=== PATIENT | female | born 1980 | race Caucasian/White ===

== ENCOUNTER 2019-03-23 05:25 | Inpatient (IN) | payer MEDICAID ==
[2019-03-23] VITALS (53 sets, daily range): BP systolic 94–161; BP diastolic 25–101
[~2019-03-23] VITALS: Ht 157.5 cm; Wt 79.8 kg
[~2019-03-23 05:25] MED LIST: ALPR2TAB2 PO; FERR-63 PO; HYDR-3927 PO; Ibuprofen PO; OXCA300T31 PO; RISP0.5T19 PO; SODIUM CHLORIDE 0.9% 1,000 ML IV SCH; TOP100 PO; VENL-180 PO; VENL75CA56 PO
[2019-03-23] MEDS ORDERED: BACITRACIN 15GM TUBE TOP ONE (06:15)
[2019-03-23] MEDS ORDERED: THROMBIN (BOVINE) 5000 UNITS/VIAL TOP ONE (06:15)
[2019-03-23] MEDS ORDERED: NORMAL SALINE 0.9% 10 ML SYR ONE (06:15)
[2019-03-23] MEDS ORDERED: LIDOCAINE HCL/EPINEPHRINE 1%-EPI 1:100,000 20 ML VIAL ONE (06:16)
[2019-03-23] MEDS ORDERED: BACITRACIN 50,000 UNITS/VIAL ONE (06:16)
[2019-03-23] MEDS ORDERED: PROPOFOL 200MG/20ML VIAL IV ONE ×2 (06:53→07:37)
[2019-03-23] MEDS ORDERED: GLYCOPYRROLATE 0.2 MG/ML 2ML VIAL ONE (06:53)
[2019-03-23] MEDS ORDERED: ROCURONIUM BROMIDE 10MG/ML VIAL 5ML IV ONE ×2 (06:53→07:12)
[2019-03-23] MEDS ORDERED: CEFAZOLIN SODIUM 1000MG/VIAL ONE (06:53)
[2019-03-23] MEDS ORDERED: NEOSTIGMINE METHYLSULFATE 1MG/ML 10 ML VIAL ONE (06:53)
[2019-03-23] MEDS ORDERED: SODIUM CHLORIDE 0.9% 10ML VIAL ONE (06:53)
[2019-03-23] MEDS ORDERED: LIDOCAINE HCL/PF 1% 10 MG/ML 5ML VIAL ONE (06:53)
[2019-03-23] MEDS ORDERED: FENTANYL CITRATE/PF 50MCG/ML 2ML VIAL ONE ×2 (06:53→07:13)
[2019-03-23] MEDS ORDERED: MIDAZOLAM HCL 2 MG/2 ML VIAL ONE (06:53)
[2019-03-23] MEDS ORDERED: SUCCINYLCHOLINE CHLORIDE 200MG/10ML IV ONE (06:53)
[2019-03-23] MEDS ORDERED: METOCLOPRAMIDE HCL 10MG/2ML VIAL ONE (06:54)
[2019-03-23] MEDS ORDERED: EPHEDRINE SULFATE 50MG/ML VIAL ONE (06:54)
[2019-03-23] MEDS ORDERED: ONDANSETRON HCL 4MG/2ML INJ ONE (06:54)
[2019-03-23] MEDS ORDERED: PHENYLEPHRINE HCL 10 MG/ML 1ML (IV VIAL) IV ONE (06:54)
[2019-03-23] MEDS ORDERED: DEXAMETHASONE 4MG/ML 1ML VIAL ONE (06:54)
[2019-03-23] MEDS ORDERED: MANNITOL 20% 500 ML IV ONE (06:55)
[2019-03-23] MEDS ORDERED: FUROSEMIDE 40MG/4ML VIAL ONE (06:56)
[2019-03-23] MEDS ORDERED: LEVETIRACETAM 500MG PREMIX 100 ML IV ONE ×2 (06:56→06:58)
[2019-03-23] MEDS ORDERED: DOCU-15 PO (07:00)
[2019-03-23] MEDS ORDERED: METH500T6 PO (07:00)
[2019-03-23] MEDS ORDERED: HYDR200T80 PO (07:00)
[2019-03-23] MEDS ORDERED: ONDANSETRON HCL 4MG/2ML INJ IV PRN (07:15)
[2019-03-23] MEDS ORDERED: PHENYTOIN SODIUM 250MG/5ML VIAL IV ONE (08:20)
[2019-03-23] MEDS ORDERED: LABETALOL HCL 5MG/ML VIAL 20ML IV ONE (09:02)
[2019-03-23] MEDS ORDERED: DIPHENHYDRAMINE 50MG/ML VIAL IV ONE (10:15)
[2019-03-23] MEDS ORDERED: ONDANSETRON HCL 4MG/2ML INJ IV ONE (10:15)
[2019-03-23] MEDS ORDERED: FENTANYL CITRATE/PF 50MCG/ML 2ML VIAL IV PRN (10:15)
[2019-03-23] MEDS: MORPHINE SULFATE 2 MG/ML CPJ (NOT FOR IM USE) IV PRN ×6 (10:19→23:02)
[2019-03-23] MEDS: DEXT 5%/LACTATED RINGERS 1,000 ML IV SCH ×2 (10:19→23:55)
[2019-03-23] MEDS: NICARDIPINE 100 MG in SODIUM CHLORIDE 0.9% 60 ML IV PRN ×2 (10:20→18:10)
[2019-03-23] MEDS: DEXAMETHASONE 4MG/ML 1ML VIAL IV SCH ×3 (11:58→23:17)
[2019-03-23] MEDS: LEVETIRACETAM 500 MG in SODIUM CHLORIDE 0.9% 100 ML IV SCH ×2 (11:58→21:10)
[2019-03-23] MEDS ORDERED: CEFAZOLIN SODIUM 1000MG/VIAL IV SCH (14:00)
[2019-03-23] MEDS ORDERED: ALPRAZOLAM 0.5 MG TABLET PO PRN (14:30)
[2019-03-23] MEDS: PHENYTOIN SODIUM 100MG/2ML VIAL IV SCH ×2 (14:36→23:17)
[2019-03-23] MEDS: CEFAZOLIN 1000MG PREMIX 50 ML IV SCH ×2 (14:36→23:17)
[2019-03-23] MEDS ORDERED: PROPOFOL 10MG/ML 100ML 100 ML IV PRN (14:45)
[2019-03-23] MEDS ORDERED: TRANEXAMIC ACID 1,000 MG/10 ML IV ONE (16:00)
[2019-03-23] MEDS ORDERED: TRANEXAMIC ACID 1,000 MG in SODIUM CHLORIDE 0.9% 100 ML IV ONE ×4 (16:00)
[2019-03-23] MEDS: DOCUSATE SODIUM 100MG CAPSULE PO SCH (16:18)
[2019-03-23] MEDS: HYDROXYCHLOROQUINE SULFATE 200MG TABLET PO SCH (16:18)
[2019-03-23] MEDS: FERROUS SULFATE 325MG TABLET PO SCH (16:18)
[2019-03-23] MEDS: TOPIRAMATE 100MG TABLET PO SCH (16:19)
[2019-03-23] MEDS: RISPERIDONE 0.5MG TABLET PO SCH (16:19)
[2019-03-23] MEDS: OXCARBAZEPINE 300MG TABLET PO SCH (16:19)
[2019-03-23 16:22] LABS: BG BASE EXCESS -9.9 mmol/L (-2.0-2.0); BG CARBOXYHEMOGLOBIN 0.4 % (0.5-1.5); BG FRACTION INSPIRED OXYGEN 40; BG METHEMOGLOBIN 0.5 % (0.0-1.5); BG OXYHEMOGLOBIN 97.1 % (94.0-97.0); BG PCO2 35.4 mmHg (35.0-45.0); BG PH 7.272 (7.350-7.450); BG PO2 105.9 mmHg (75.0-100.0); BG SAMPLE SITE A-LINE; BG TIDAL VOLUME(mL) 500 mL; BG TOTAL HEMOGLOBIN 14.9 g/dL (12.0-18.0); BG VENT MODE VENT - A/C; BG VENT RATE 12 set
[2019-03-23 16:54] LABS: HEMATOCRIT. 45.1 % (36.0-48.0); MEAN CORPUSCULAR VOLUME 99.3 fL (81.0-99.0); MEAN PLATELET VOLUME 8.7 fl (7.4-10.4); PLATELET 213 x1000/uL (130-400); RED BLOOD CELL COUNT 4.54 mill/uL (4.2-5.4); RED CELL DISTRIBUTION WIDTH 13.4 % (11.6-14.6)
[2019-03-23 17:00] LABS: CHLORIDE 115 mEq/L (98-107)
[2019-03-23] MEDS ORDERED: MORPHINE SULFATE 2 MG/ML CPJ (NOT FOR IM USE) IV NR ×2 (17:15→20:00)
[2019-03-23 17:25] LABS: PLATELET ESTIMATE NORMAL
[2019-03-23] MEDS ORDERED: GADOBENATE DIMEGLUMINE 529 MG/ML 10ML IV ONE (22:46)
[2019-03-24] VITALS (95 sets, daily range): BP systolic 101–146; BP diastolic 47–155
[2019-03-24] MEDS: NICARDIPINE 100 MG in SODIUM CHLORIDE 0.9% 60 ML IV PRN ×4 (01:35→21:53)
[2019-03-24] MEDS: MORPHINE SULFATE 2 MG/ML CPJ (NOT FOR IM USE) IV PRN ×9 (02:05→23:22)
[2019-03-24] MEDS: DEXAMETHASONE 4MG/ML 1ML VIAL IV SCH ×4 (05:01→23:22)
[2019-03-24] MEDS: CEFAZOLIN 1000MG PREMIX 50 ML IV SCH ×3 (05:01→21:53)
[2019-03-24] MEDS: PHENYTOIN SODIUM 100MG/2ML VIAL IV SCH ×3 (05:01→21:14)
[2019-03-24] MEDS: LEVETIRACETAM 500 MG in SODIUM CHLORIDE 0.9% 100 ML IV SCH ×2 (08:53→21:14)
[2019-03-24] MEDS: VENLAFAXINE HCL 37.5MG TABLET PO SCH (09:00)
[2019-03-24] MEDS: DOCUSATE SODIUM 100MG CAPSULE PO SCH ×2 (09:00→17:00)
[2019-03-24] MEDS: HYDROXYCHLOROQUINE SULFATE 200MG TABLET PO SCH ×2 (09:00→17:00)
[2019-03-24] MEDS: TOPIRAMATE 100MG TABLET PO SCH ×2 (09:00→17:00)
[2019-03-24] MEDS: FERROUS SULFATE 325MG TABLET PO SCH ×2 (09:00→17:00)
[2019-03-24] MEDS: OXCARBAZEPINE 300MG TABLET PO SCH ×2 (09:00→17:00)
[2019-03-24] MEDS: RISPERIDONE 0.5MG TABLET PO SCH ×2 (09:00→17:00)
[2019-03-24] MEDS ORDERED: DEXTROSE 50% WATER 50ML SYRINGE IV PRN (09:15)
[2019-03-24] MEDS: IPRATROPIUM/ALBUTEROL 0.5-3(2.5)MG/3ML NEB HHN PRN (09:34)
[2019-03-24 10:20] LABS: BG BASE EXCESS -8.3 mmol/L (-2.0-2.0); BG CARBOXYHEMOGLOBIN 0.1 % (0.5-1.5); BG DEOXYHEMOGLOBIN 1.5 % (0.0-5.0); BG FRACTION INSPIRED OXYGEN 40; BG HCO3 ACT 18.3 mmol/L (22.0-26.0); BG METHEMOGLOBIN 0.2 % (0.0-1.5); BG OXYGEN SATURATION 98.5 % (92.0-98.5); BG OXYHEMOGLOBIN 98.2 % (94.0-97.0); BG PCO2 41.6 mmHg (35.0-45.0); BG PH 7.261 (7.350-7.450); BG PO2 141.6 mmHg (75.0-100.0); BG SAMPLE SITE A-LINE; BG TIDAL VOLUME(mL) 500 mL; BG TOTAL HEMOGLOBIN 13.5 g/dL (12.0-18.0); BG VENT MODE VENT - A/C; BG VENT RATE 16 set
[2019-03-24 12:00] LABS: CHLORIDE 118 mEq/L (98-107)
[2019-03-24 12:01] LABS: HEMATOCRIT. 44.1 % (36.0-48.0); HEMOGLOBIN. 14.5 g/dL (12.0-16.0); MEAN CORPUSCULAR VOLUME 100.5 fL (81.0-99.0); PLATELET 238 x1000/uL (130-400); RED BLOOD CELL COUNT 4.39 mill/uL (4.2-5.4); RED CELL DISTRIBUTION WIDTH 13.6 % (11.6-14.6)
[2019-03-24] MEDS: INSULIN LISPRO 100 UNITS/ML SUBCUT SCH ×3 (12:09→23:36)
[2019-03-24] MEDS: BLOOD SUGAR DIAGNOSTIC STRIP TEST SCH ×3 (12:15→23:32)
[2019-03-24 14:17] LABS: PLATELET ESTIMATE NORMAL
[2019-03-24] MEDS: DEXT 5%/LACTATED RINGERS 1,000 ML IV SCH (16:10)
[2019-03-24] MEDS: IPRATROPIUM/ALBUTEROL 0.5-3(2.5)MG/3ML NEB HHN SCH ×2 (17:24→20:23)
[2019-03-25] VITALS (92 sets, daily range): BP systolic 74–281; BP diastolic 49–279
[2019-03-25] MEDS: IPRATROPIUM/ALBUTEROL 0.5-3(2.5)MG/3ML NEB HHN SCH ×3 (02:05→20:10)
[2019-03-25] MEDS: MORPHINE SULFATE 2 MG/ML CPJ (NOT FOR IM USE) IV PRN ×3 (02:08→21:02)
[2019-03-25] MEDS: DEXAMETHASONE 4MG/ML 1ML VIAL IV SCH ×2 (05:11→11:21)
[2019-03-25] MEDS: BLOOD SUGAR DIAGNOSTIC STRIP TEST SCH ×3 (05:12→17:44)
[2019-03-25] MEDS: NICARDIPINE 100 MG in SODIUM CHLORIDE 0.9% 60 ML IV PRN ×3 (05:12→21:01)
[2019-03-25] MEDS: CEFAZOLIN 1000MG PREMIX 50 ML IV SCH ×2 (05:12→14:23)
[2019-03-25] MEDS: PHENYTOIN SODIUM 100MG/2ML VIAL IV SCH ×3 (05:12→21:01)
[2019-03-25 05:18] LABS: HEMOGLOBIN. 12.4 g/dL (12.0-16.0); MEAN CORPUSCULAR HEMOGLOBIN 33.2 pg (28.0-32.0); MEAN PLATELET VOLUME 7.9 fl (7.4-10.4); PLATELET 231 x1000/uL (130-400); RED BLOOD CELL COUNT 3.74 mill/uL (4.2-5.4); RED CELL DISTRIBUTION WIDTH 13.3 % (11.6-14.6)
[2019-03-25 05:23] LABS: CHLORIDE 120 mEq/L (98-107)
[2019-03-25] MEDS: INSULIN LISPRO 100 UNITS/ML SUBCUT SCH ×3 (05:43→17:50)
[2019-03-25 07:41] LABS: PLATELET ESTIMATE NORMAL
[2019-03-25] MEDS: DEXT 5%/LACTATED RINGERS 1,000 ML IV SCH (08:39)
[2019-03-25] MEDS: LEVETIRACETAM 500 MG in SODIUM CHLORIDE 0.9% 100 ML IV SCH ×2 (08:39→21:21)
[2019-03-25] MEDS: VENLAFAXINE HCL 37.5MG TABLET PO SCH (08:51)
[2019-03-25] MEDS: FERROUS SULFATE 325MG TABLET PO SCH ×2 (08:51→16:13)
[2019-03-25] MEDS: RISPERIDONE 0.5MG TABLET PO SCH ×2 (08:51→16:13)
[2019-03-25] MEDS: HYDROXYCHLOROQUINE SULFATE 200MG TABLET PO SCH (08:51)
[2019-03-25] MEDS: TOPIRAMATE 100MG TABLET PO SCH ×2 (08:51→16:13)
[2019-03-25] MEDS: DOCUSATE SODIUM 100MG CAPSULE PO SCH ×2 (08:51→16:12)
[2019-03-25] MEDS: OXCARBAZEPINE 300MG TABLET PO SCH ×2 (08:51→16:13)
[2019-03-25] MEDS ORDERED: RACEPINEPHRINE 2.25% 0.5ML NEB VIAL HHN PRN (09:30)
[2019-03-25] MEDS ORDERED: LORAZEPAM 2MG/ML CPJ IV NR (09:30)
[2019-03-25 10:28] LABS: BG BASE EXCESS -2.8 mmol/L (-2.0-2.0); BG CARBOXYHEMOGLOBIN 0.3 % (0.5-1.5); BG DEOXYHEMOGLOBIN 1.8 % (0.0-5.0); BG FRACTION INSPIRED OXYGEN 40; BG HCO3 ACT 21.6 mmol/L (22.0-26.0); BG METHEMOGLOBIN 0.5 % (0.0-1.5); BG OXYGEN SATURATION 98.2 % (92.0-98.5); BG OXYHEMOGLOBIN 97.4 % (94.0-97.0); BG PCO2 36.1 mmHg (35.0-45.0); BG PH 7.394 (7.350-7.450); BG PRESSURE SUPPORT 8; BG SAMPLE SITE A-LINE; BG TOTAL HEMOGLOBIN 12.5 g/dL (12.0-18.0); BG VENT MODE VENT - CPAP
[2019-03-25] MEDS: IPRATROPIUM/ALBUTEROL 0.5-3(2.5)MG/3ML NEB HHN PRN ×2 (12:58→16:37)
[2019-03-25] MEDS: VENLAFAXINE HCL 37.5MG SR CAPSULE 24HR PO SCH (20:21)
[2019-03-26] VITALS (101 sets, daily range): BP systolic 74–170; BP diastolic 34–116
[2019-03-26] MEDS: BLOOD SUGAR DIAGNOSTIC STRIP TEST SCH ×4 (00:58→17:38)
[2019-03-26] MEDS: IPRATROPIUM/ALBUTEROL 0.5-3(2.5)MG/3ML NEB HHN SCH ×4 (01:47→20:26)
[2019-03-26] MEDS: DEXT 5%/LACTATED RINGERS 1,000 ML IV SCH ×2 (01:55→21:38)
[2019-03-26] MEDS: INSULIN LISPRO 100 UNITS/ML SUBCUT SCH ×4 (05:03→17:38)
[2019-03-26] MEDS: PHENYTOIN SODIUM 100MG/2ML VIAL IV SCH ×3 (05:06→21:37)
[2019-03-26] MEDS: FERROUS SULFATE 325MG TABLET PO SCH (08:50)
[2019-03-26] MEDS: RISPERIDONE 0.5MG TABLET PO SCH ×2 (08:50→17:39)
[2019-03-26] MEDS: TOPIRAMATE 100MG TABLET PO SCH ×2 (08:50→17:38)
[2019-03-26] MEDS: LEVETIRACETAM 500 MG in SODIUM CHLORIDE 0.9% 100 ML IV SCH ×2 (08:50→21:38)
[2019-03-26] MEDS: VENLAFAXINE HCL 37.5MG SR CAPSULE 24HR PO SCH ×2 (08:50→21:38)
[2019-03-26] MEDS: DOCUSATE SODIUM 100MG CAPSULE PO SCH (08:50)
[2019-03-26] MEDS: OXCARBAZEPINE 300MG TABLET PO SCH ×2 (08:51→17:39)
[2019-03-26 09:25] LABS: BASOPHILS % 0.3 % (0.0-2.0); HEMATOCRIT. 37.4 % (36.0-48.0); HEMOGLOBIN. 12.5 g/dL (12.0-16.0); MEAN CORPUSCULAR HEMOGLOBIN 33.1 pg (28.0-32.0); MEAN CORPUSCULAR VOLUME 99.4 fL (81.0-99.0); MEAN PLATELET VOLUME 7.6 fl (7.4-10.4); MONOCYTES % 7.8 % (2.0-8.0); NEUTROPHILS % 73.9 % (40.0-76.0); PLATELET 199 x1000/uL (130-400); RED BLOOD CELL COUNT 3.76 mill/uL (4.2-5.4); RED CELL DISTRIBUTION WIDTH 13.8 % (11.6-14.6)
[2019-03-26 09:30] LABS: CHLORIDE 121 mEq/L (98-107)
[2019-03-26] MEDS: NICARDIPINE 100 MG in SODIUM CHLORIDE 0.9% 60 ML IV PRN (11:26)
[2019-03-26] MEDS: AMLODIPINE 5MG TABLET PO SCH ×2 (12:00→21:38)
[2019-03-27] VITALS (79 sets, daily range): BP systolic 110–166; BP diastolic 68–112
[2019-03-27] MEDS: IPRATROPIUM/ALBUTEROL 0.5-3(2.5)MG/3ML NEB HHN SCH ×4 (02:32→20:03)
[2019-03-27 05:26] LABS: BASOPHILS % 0.3 % (0.0-2.0); EOSINOPHILS % 0.8 % (0.0-5.0); HEMATOCRIT. 37.4 % (36.0-48.0); HEMOGLOBIN. 12.7 g/dL (12.0-16.0); LYMPHOCYTES % 30.2 % (20.0-50.0); MEAN CORPUSCULAR HEMOGLOBIN 33.7 pg (28.0-32.0); MONOCYTES % 6.3 % (2.0-8.0); NEUTROPHILS % 62.4 % (40.0-76.0); PLATELET 185 x1000/uL (130-400); RED BLOOD CELL COUNT 3.78 mill/uL (4.2-5.4); RED CELL DISTRIBUTION WIDTH 13.2 % (11.6-14.6)
[2019-03-27 05:42] LABS: CHLORIDE 118 mEq/L (98-107)
[2019-03-27] MEDS ORDERED: INSULIN LISPRO 100 UNITS/ML SUBCUT SCH ×2 (06:30→07:00)
[2019-03-27] MEDS: PHENYTOIN SODIUM 100MG/2ML VIAL IV SCH ×2 (06:44→13:50)
[2019-03-27] MEDS: BLOOD SUGAR DIAGNOSTIC STRIP TEST SCH ×4 (06:45→20:51)
[2019-03-27] MEDS: INSULIN LISPRO 100 UNITS/ML SUBCUT SCH ×4 (06:45→20:51)
[2019-03-27] MEDS: NICARDIPINE 100 MG in SODIUM CHLORIDE 0.9% 60 ML IV PRN (08:06)
[2019-03-27] MEDS: TOPIRAMATE 100MG TABLET PO SCH ×2 (08:07→19:09)
[2019-03-27] MEDS: OXCARBAZEPINE 300MG TABLET PO SCH ×2 (08:07→19:09)
[2019-03-27] MEDS: RISPERIDONE 0.5MG TABLET PO SCH ×2 (08:07→19:09)
[2019-03-27] MEDS: VENLAFAXINE HCL 37.5MG SR CAPSULE 24HR PO SCH ×2 (08:07→20:54)
[2019-03-27] MEDS: LEVETIRACETAM 500 MG in SODIUM CHLORIDE 0.9% 100 ML IV SCH (08:07)
[2019-03-27] MEDS: AMLODIPINE 5MG TABLET PO SCH ×2 (08:07→20:54)
[2019-03-27] MEDS ORDERED: POTASSIUM CHLORIDE 20MEQ TABLET SR PO SCH (09:30)
[2019-03-27] MEDS: DEXT 5%/LACTATED RINGERS 1,000 ML IV SCH (10:41)
[2019-03-27] MEDS: LEVETIRACETAM 500MG TABLET PO SCH (20:54)
[2019-03-27] MEDS: PHENYTOIN SODIUM EXTENDED 100MG CAPSULE PO SCH (21:00)
[2019-03-28] VITALS (55 sets, daily range): BP systolic 105–152; BP diastolic 47–106
[2019-03-28] MEDS: IPRATROPIUM/ALBUTEROL 0.5-3(2.5)MG/3ML NEB HHN SCH (02:18)
[2019-03-28 05:29] LABS: BASOPHILS % 0.2 % (0.0-2.0); EOSINOPHILS % 2.8 % (0.0-5.0); HEMATOCRIT. 38.9 % (36.0-48.0); HEMOGLOBIN. 13.2 g/dL (12.0-16.0); LYMPHOCYTES % 30.1 % (20.0-50.0); MEAN CORPUSCULAR HEMOGLOBIN 33.4 pg (28.0-32.0); MEAN CORPUSCULAR VOLUME 98.5 fL (81.0-99.0); MEAN PLATELET VOLUME 7.4 fl (7.4-10.4); MONOCYTES % 6.4 % (2.0-8.0); NEUTROPHILS % 60.5 % (40.0-76.0); PLATELET 190 x1000/uL (130-400); RED BLOOD CELL COUNT 3.95 mill/uL (4.2-5.4); RED CELL DISTRIBUTION WIDTH 12.8 % (11.6-14.6)
[2019-03-28] MEDS: BLOOD SUGAR DIAGNOSTIC STRIP TEST SCH ×4 (05:34→21:00)
[2019-03-28] MEDS: INSULIN LISPRO 100 UNITS/ML SUBCUT SCH ×4 (05:34→21:00)
[2019-03-28 05:36] LABS: CHLORIDE 116 mEq/L (98-107)
[2019-03-28] MEDS: PHENYTOIN SODIUM EXTENDED 100MG CAPSULE PO SCH ×3 (06:46→22:45)
[2019-03-28] MEDS: LEVETIRACETAM 500MG TABLET PO SCH ×2 (09:22→20:16)
[2019-03-28] MEDS: OXCARBAZEPINE 300MG TABLET PO SCH ×2 (09:22→18:08)
[2019-03-28] MEDS: VENLAFAXINE HCL 37.5MG SR CAPSULE 24HR PO SCH ×2 (09:22→20:16)
[2019-03-28] MEDS: RISPERIDONE 0.5MG TABLET PO SCH ×2 (09:22→18:08)
[2019-03-28] MEDS: TOPIRAMATE 100MG TABLET PO SCH ×2 (09:22→18:08)
[2019-03-28] MEDS: AMLODIPINE 5MG TABLET PO SCH ×2 (09:23→20:17)
[2019-03-28] MEDS: IPRATROPIUM/ALBUTEROL 0.5-3(2.5)MG/3ML NEB HHN PRN ×2 (09:33→14:42)
[2019-03-28] MEDS: OMEPRAZOLE 20MG CAPSULE EXTENDED RELEASE PO SCH (12:31)
[2019-03-28] MEDS: DEXT 5%/LACTATED RINGERS 1,000 ML IV SCH (12:35)
[2019-03-28] MEDS: MORPHINE SULFATE 2 MG/ML CPJ (NOT FOR IM USE) IV PRN (14:33)
[2019-03-29] VITALS (39 sets, daily range): BP systolic 68–157; BP diastolic 22–93
[2019-03-29 06:02] LABS: BASOPHILS % 0.2 % (0.0-2.0); EOSINOPHILS % 2.4 % (0.0-5.0); HEMATOCRIT. 39.7 % (36.0-48.0); HEMOGLOBIN. 13.5 g/dL (12.0-16.0); LYMPHOCYTES % 28.1 % (20.0-50.0); MEAN CORPUSCULAR HEMOGLOBIN 33.6 pg (28.0-32.0); MEAN CORPUSCULAR VOLUME 98.9 fL (81.0-99.0); MEAN PLATELET VOLUME 7.6 fl (7.4-10.4); MONOCYTES % 6.5 % (2.0-8.0); NEUTROPHILS % 62.8 % (40.0-76.0); PLATELET 207 x1000/uL (130-400); RED BLOOD CELL COUNT 4.02 mill/uL (4.2-5.4); RED CELL DISTRIBUTION WIDTH 13.1 % (11.6-14.6)
[2019-03-29 06:08] LABS: CHLORIDE 113 mEq/L (98-107)
[2019-03-29] MEDS: INSULIN LISPRO 100 UNITS/ML SUBCUT SCH ×4 (06:17→21:00)
[2019-03-29] MEDS: DEXT 5%/LACTATED RINGERS 1,000 ML IV SCH ×2 (06:17→13:15)
[2019-03-29] MEDS: PHENYTOIN SODIUM EXTENDED 100MG CAPSULE PO SCH ×3 (06:17→21:56)
[2019-03-29] MEDS: BLOOD SUGAR DIAGNOSTIC STRIP TEST SCH ×4 (06:17→21:59)
[2019-03-29] MEDS: OMEPRAZOLE 20MG CAPSULE EXTENDED RELEASE PO SCH (06:17)
[2019-03-29] MEDS: RISPERIDONE 0.5MG TABLET PO SCH ×2 (09:30→16:14)
[2019-03-29] MEDS: LEVETIRACETAM 500MG TABLET PO SCH ×2 (09:30→21:59)
[2019-03-29] MEDS: VENLAFAXINE HCL 37.5MG SR CAPSULE 24HR PO SCH ×2 (09:30→21:58)
[2019-03-29] MEDS: AMLODIPINE 5MG TABLET PO SCH ×2 (09:30→21:58)
[2019-03-29] MEDS: OXCARBAZEPINE 300MG TABLET PO SCH ×2 (09:30→16:14)
[2019-03-29] MEDS: TOPIRAMATE 100MG TABLET PO SCH ×2 (09:30→16:14)
[2019-03-29] MEDS: IPRATROPIUM/ALBUTEROL 0.5-3(2.5)MG/3ML NEB HHN PRN (09:43)
[2019-03-29] MEDS: MORPHINE SULFATE 2 MG/ML CPJ (NOT FOR IM USE) IV PRN (16:06)
[2019-03-30 00:46] VITALS: BP 102/63
[2019-03-30 04:00] VITALS: BP 117/73
[2019-03-30] MEDS: OMEPRAZOLE 20MG CAPSULE EXTENDED RELEASE PO SCH (06:34)
[2019-03-30] MEDS: PHENYTOIN SODIUM EXTENDED 100MG CAPSULE PO SCH ×3 (06:34→21:52)
[2019-03-30] MEDS: DEXT 5%/LACTATED RINGERS 1,000 ML IV SCH ×2 (06:34→21:52)
[2019-03-30] MEDS: BLOOD SUGAR DIAGNOSTIC STRIP TEST SCH ×4 (06:49→21:52)
[2019-03-30 07:15] LABS: CHLORIDE 111 mEq/L (98-107)
[2019-03-30 07:22] LABS: BASOPHILS % 0.1 % (0.0-2.0); EOSINOPHILS % 2.1 % (0.0-5.0); HEMATOCRIT. 39.8 % (36.0-48.0); HEMOGLOBIN. 13.4 g/dL (12.0-16.0); LYMPHOCYTES % 25.4 % (20.0-50.0); MEAN CORPUSCULAR HEMOGLOBIN 32.8 pg (28.0-32.0); MEAN CORPUSCULAR VOLUME 97.4 fL (81.0-99.0); MEAN PLATELET VOLUME 8.2 fl (7.4-10.4); MONOCYTES % 8.6 % (2.0-8.0); NEUTROPHILS % 63.8 % (40.0-76.0); PLATELET 208 x1000/uL (130-400); RED BLOOD CELL COUNT 4.09 mill/uL (4.2-5.4); RED CELL DISTRIBUTION WIDTH 12.7 % (11.6-14.6)
[2019-03-30] MEDS: INSULIN LISPRO 100 UNITS/ML SUBCUT SCH ×4 (07:50→21:00)
[2019-03-30 08:15] VITALS: BP 112/79
[2019-03-30] MEDS: LEVETIRACETAM 500MG TABLET PO SCH ×2 (08:51→21:52)
[2019-03-30] MEDS: VENLAFAXINE HCL 37.5MG SR CAPSULE 24HR PO SCH ×2 (08:51→21:52)
[2019-03-30] MEDS: RISPERIDONE 0.5MG TABLET PO SCH ×2 (08:51→18:36)
[2019-03-30] MEDS: TOPIRAMATE 100MG TABLET PO SCH ×2 (08:51→18:36)
[2019-03-30] MEDS: OXCARBAZEPINE 300MG TABLET PO SCH ×2 (08:51→18:36)
[2019-03-30] MEDS: AMLODIPINE 5MG TABLET PO SCH ×2 (08:52→21:52)
[2019-03-30 12:16] VITALS: BP 112/79
[2019-03-30] MEDS: MORPHINE SULFATE 2 MG/ML CPJ (NOT FOR IM USE) IV PRN (12:53)
[2019-03-30 16:09] VITALS: BP 111/81
[2019-03-30 20:00] VITALS: BP 123/77
[2019-03-31] VITALS (7 sets, daily range): BP systolic 103–121; BP diastolic 59–80
[2019-03-31] MEDS: PHENYTOIN SODIUM EXTENDED 100MG CAPSULE PO SCH ×3 (06:18→19:43)
[2019-03-31] MEDS: BLOOD SUGAR DIAGNOSTIC STRIP TEST SCH ×4 (06:19→20:13)
[2019-03-31] MEDS: OMEPRAZOLE 20MG CAPSULE EXTENDED RELEASE PO SCH (06:20)
[2019-03-31] MEDS: INSULIN LISPRO 100 UNITS/ML SUBCUT SCH ×4 (07:50→20:14)
[2019-03-31] MEDS: LEVETIRACETAM 500MG TABLET PO SCH ×2 (09:53→19:43)
[2019-03-31] MEDS: OXCARBAZEPINE 300MG TABLET PO SCH ×2 (09:53→17:41)
[2019-03-31] MEDS: AMLODIPINE 5MG TABLET PO SCH ×2 (09:54→19:43)
[2019-03-31] MEDS: RISPERIDONE 0.5MG TABLET PO SCH ×2 (09:54→17:41)
[2019-03-31] MEDS: VENLAFAXINE HCL 37.5MG SR CAPSULE 24HR PO SCH (09:54)
[2019-03-31] MEDS: TOPIRAMATE 100MG TABLET PO SCH ×2 (09:54→17:41)
[2019-03-31] MEDS: HYDROCODONE/ACETAMINOPHEN 5/325MG TABLET PO PRN ×2 (14:02→18:34)
== END 2019-03-31 19:55 | DRG 21 ==
LOC: OR 05:25 → MICUSO 05:26 → 6WST 03-29 11:02 → 6EST 03-31 12:06
PROVIDERS: ADMIT Neurological Surgery; ATTEND Internal Medicine
PROC: 00U207Z Supplement Dura Mater with Autologous Tissue Substitute, Open Approach (ICD-10-PCS; principal; 2019-03-23)
PROC: 00B70ZZ Excision of Cerebral Hemisphere, Open Approach (ICD-10-PCS; 2019-03-23)
PROC: 5A1945Z Respiratory Ventilation, 24-96 Consecutive Hours (ICD-10-PCS; 2019-03-25)
DX: C71.1 Malignant neoplasm of frontal lobe (principal); I61.1 Nontraumatic intracerebral hemorrhage in hemisphere, cortical; J95.821 Acute postprocedural respiratory failure; G93.41 Metabolic encephalopathy; R13.10 Dysphagia, unspecified; D72.829 Elevated white blood cell count, unspecified; R00.0 Tachycardia, unspecified; R26.9 Unspecified abnormalities of gait and mobility; G40.909 Epilepsy, unspecified, not intractable, without status epilepticus; R47.1 Dysarthria and anarthria; R73.9 Hyperglycemia, unspecified; G81.91 Hemiplegia, unspecified affecting right dominant side; Z78.1 Physical restraint status; Z98.82 Breast implant status; Z98.51 Tubal ligation status; Z92.21 Personal history of antineoplastic chemotherapy; Z92.3 Personal history of irradiation; Z90.710 Acquired absence of both cervix and uterus
CPT/HCPCS: 36415; 36600; 70553; 71045; 76998; 80048; 80185; 82375; 82805; 82962; 83036; 84478; 86850; 86900; 88300; 88307; 88331; 92523; 92610; 93005; 93970; 94002; 94003; 94640; 97110; 97116; 97162; 97166; 97530; A9577; C1893; J0330; J0690; J1100; J1165; J1815; J1940; J1953; J2060; J2250; J2270; J2370; J2405; J2704; J2710; J2765; J3010; J3490; J7040; J7050; J7121; J7620